=== PATIENT | male | born 1965 | race Caucasian/White ===

== ENCOUNTER 2022-08-19 19:02 | Emergency (ER) | payer MEDICARE, SELFPAY ==
[2022-08-19 19:03] VITALS: BP 217/115; PULSE 98; RESP 18; TEMP 37.2; O2SAT 98
--- NOTE | 2022-08-19 19:14 | W.ED.EXTPRO ---
Documented by User: CESAR Spivey 08/19/22 22:55 HPI - Extremity Problem General: Chief complaint: Extremity Injury, Lower Stated complaint: left knee injury Time Seen by Provider: 08/19/22 19:13 History of Present Illness: Patient is a 56-year-old man that presents to the emergency department with complaints of left lower extremity pain. Patient reports that approximately 2 to 3 weeks ago he had an injury to the left lower extremity. He seemed to improve however yesterday while moving a heavy piece of furniture he felt a pop in the posterior aspect of his knee and had intense pain. Patient reports he developed some swelling in the calf and tenderness in the calf. Patient has no significant medical history. He does not take any routine medications. Associated symptoms: Deny chest pain, fever(s) or rash Review of Systems General: Reports: 10 or more systems reviewed and unremarkable except in HPI and below Const: Denies: fever(s), chills, change in appetite, change in weight, fatigue or malaise Eyes: Denies: change in vision, eye discomfort, eye discharge or eye redness ENMT: Denies: throat pain, enlarged tonsils, odynophagia, hoarseness, ear or mastoid pain, ear discharge, change in hearing, tinnitus, nasal discharge, nasal congestion, post nasal drip or sinus pain Card: Denies: chest pain, palpitations, irregular heart rhythm, edema, dyspnea on exertion, orthopnea or leg pain with exertion Resp: Denies: dyspnea, productive cough, non-productive cough, wheezing, stridor or chest congestion GI: Denies: abdominal pain, nausea, vomiting, dysphagia, diarrhea, constipation, bloating, GI cramping or hematochezia : Denies: flank pain, dysuria, urinary frequency, urinary urgency, urinary hesitancy, oliguria or hematuria Musc: Denies: neck pain, back pain, extremity pain, joint pain, joint swelling, joint redness, joint warmth or muscle weakness Skin/Breast: Denies: rash, pruritus, erythema, photosensitivity or new lesions Neuro: Denies: headache(s), numbness in extremities, weakness in extremities, sensory changes, lack of coordination, difficulty walking, frequent falls, dizziness, confusion, Slurred speech present, difficulty communicating thoughts, seizure-like activity or involuntary movements Endo: Denies: polyuria, polydipsia or tired all the time Flako/Lymph: Denies: easy bruising or easy bleeding Physical Exam Const: COMMON NORMALS: no acute distress, patient oriented x3 and alert GENERAL APPEARANCE: cooperative ORIENTATION/CONSCIOUSNESS: Yes awake, Yes oriented to person, Yes oriented to place and Yes oriented to time HENMT: COMMON NORMALS: normocephalic and atraumatic HEAD & SCALP: normocephalic and atraumatic FACE & SINUS: normal facial exam MOUTH: Normal oral and palatal mucosa present THROAT: posterior oropharynx normal Eye: COMMON NORMALS: Equal, round and reactive pupils present, EOMs intact bilaterally, conjunctivae normal and no scleral icterus GENERAL EYE: appearance normal, both eyes and all related structures ALIGNMENT: Yes alignment normal PERIORBITAL: periorbital findings normal CONJUNCTIVA: Yes conjunctivae normal PUPIL: Yes Equal, round and reactive pupils present Neck/C-Spine: COMMON NORMALS: full ROM GENERAL: Yes normal visual inspection Lymph: LYMPHATIC: no lymphadenopathy noted Chest: COMMONS NORMALS: normal inspection of the chest Breast/axilla inspection: Yes no chest deformity, asymmetry, normal contours, no nodules, masses, tenderness Resp: COMMON NORMALS: normal respiratory effort, No retractions, No use of accessory muscles and clear to auscultation bilaterally EFFORT & INSPECTION: Yes able to speak in complete sentences and Yes symmetric chest movement AUSCULTATION: clear to auscultation bilaterally Cardio: COMMON NORMALS: regular rate, regular rhythm and Peripheral pulses 2+ throughout RATE: regular rate RHYTHM: regular rhythm PERIPHERAL PULSES: Peripheral pulses 2+ throughout GI: COMMON NORMALS: Normal to inspection, nondistended, normoactive bowel sounds present, Soft to palpation, non-tender and No hepatosplenomegaly present INSPECTION: Yes normal to inspection AUSCULTATION: Yes normoactive bowel sounds PALPATION: Yes Soft to palpation and Yes No hepatosplenomegaly present RECTAL EXAM: Yes deferred Extremity: COMMON NORMALS: normal to inspection NARRATIVE EXTREMITY EXAM: Left lower extremity: Skin is clean dry and intact Nontender to palpation on quad, hamstring Tenderness to palpation on calf and posterior knee Patient is able to ambulate without difficulty Pain increases in the posterior knee when standing Negative varus or valgus stress Negative Renato or anterior drawer Patient is able to straight leg raise Patient is able to flex and extend hip and knee Patient is able to dorsiflex and plantarflex foot Sensations intact to light touch at medial, lateral, dorsal, plantar surface of the foot and first webspace DP pulse is palpable and cap refills less than 3 seconds GENERAL: Yes normal exam except as noted Neuro: COMMON NORMALS: patient oriented x3 SENSORIUM/ORIENTATION: Yes alert, Yes oriented to person, Yes oriented to place and Yes oriented to time CRANIAL NERVES: Yes CN normal except as noted Psych: COMMON NORMALS: mental status grossly normal, Normal thought process present, cooperative, activity/motor behavior normal, denies homicidal ideation and denies suicidal ideation THOUGHT PROCESS: Normal thought process present Skin: COMMON NORMALS: no rashes or lesions noted, no wounds and turgor normal GENERAL SKIN EXAM: no rashes or lesions noted and turgor normal Course Vital Signs: Vital signs: Vital Signs Temperature 99.0 F 08/19/22 19:03 Pulse Rate 98 08/19/22 19:03 Respiratory Rate 18 08/19/22 19:03 Blood Pressure 199/105 08/19/22 23:23 Pulse Oximetry 98 08/19/22 19:03 Oxygen Delivery Me thod 08/19/22 19:03 MDM - Extremity (Nontraumatic) Medical Decision Making Patient was evaluated in the emergency department for posterior knee pain. He describes an episode where he had some swelling and pain in the calf. He also reports a story of repetitive injury to the extremity. Differential diagnosis includes strain, sprain, Felix's cyst. More concerning would be DVT. I obtain an ultrasound of the left lower extremity. Ultrasound reveals DVTs (see report). Vascular surgery, at [facility], was contacted at [phone]. They returned the call at [phone]. Recommendation is that he is discharged on [address] Peryr did notify that there has been a change in Eliquis coverage with many insurance providers. Patient has been notified of possible decline by insurance and paying for Eliquis. Going to contact the emergency department to discuss further if this is an issue with his provider. We are going to establish primary care. Management has been consulted. Patient will need emergent placement with the PCP, preferably towards there. If he is unable to establish primary care he can follow-up with Dr. Perry. Prior to patient's departure I am obtaining baseline lab information. Will be used to assess renal function in the case that Eliquis is not covered and we have to change medications. Patient's blood pressure was treated in the emergency department with hydralazine. I will not be discharging him home on blood pressure medications. He will need to establish care to have this followed. I am renewing 2 prescriptions, glimepiride and metformin. Lab Data 08/19/22 22:57 08/19/22 22:57 Radiology Impressions Venous Duplex 08/19/22 19:52 IMPRESSION: Hypoechoic, nearly occlusive to occlusive thrombus in the mid to distal femoral and popliteal veins, as well as 1 of the paired posterior tibial veins. ADDENDUM: 08/19/222124 ADDENDUM: THIS REPORT CONTAINS FINDINGS THAT MAY BE CRITICAL TO PATIENT CARE. As of 9:23 PM DEICER FINISHER on 08/19/2022, DANNY CONTRERAS confirmed receipt of the exam report, is aware of the critical finding and indicated no conference call was necessary to discussed the exam findings. Laboratory Results WBC 9.0 10^3/uL (4.0-10.0) 08/19/22 22:57 RBC 5.09 10^6/uL (4.1-5.3) 08/19/22 22:57 Hgb 15.5 g/dL (11.7-16.6) 08/19/22 22:57 Hct 47.8 % (42.0-52.0) 08/19/22 22:57 MCV 93.9 fl (80-94) 08/19/22 22:57 MCH 30.5 pg (28.0-34.0) 08/19/22 22:57 MCHC 32.4 g/dL (30.0-36.0) 08/19/22 22:57 RDW 12.6 % (12.1-15.1) 08/19/22 22:57 Plt Count 189 10^3/cmm (130-400) 08/19/22 22:57 MPV 10.5 fL (7.4-10.4) H 08/19/22 22:57 Neut % (Auto) 75.6 % 08/19/22 22:57 Lymph % (Auto) 16.3 % 08/19/22 22:57 Villalba % (Auto) 5.2 % 08/19/22 22:57 Eos % (Auto) 1.8 % 08/19/22 22:57 Baso % (Auto) 0.8 % 08/19/22 22:57 Neut # (Auto) 6.79 10^3/uL (1.8-7.7) 08/19/22 22:57 Lymph # (Auto) 1.5 10^3/uL (0.8-4.8) 08/19/22 22:57 Villalba # (Auto) 0.5 10^3/uL (0.2-0.9) 08/19/22 22:57 Eos # (Auto) 0.2 10^3/uL (0.0-0.8) 08/19/22 22:57 Baso # (Auto) 0.1 10^3/uL (0.0-0.1) 08/19/22 22:57 Nucleated RBC % (auto) 0 % 08/19/22 22:57 Nucleated RBCs # 0.0 /100WBC 08/19/22 22:57 Sodium 136 mmol/L (136-145) 08/19/22 22:57 Potassium 4.1 mmol/L (3.5-5.1) 08/19/22 22:57 Chloride 97 mmol/L (98-107) L 08/19/22 22:57 Carbon Dioxide 26 mmol/L (22-29) 08/19/22 22:57 Anion Gap 17.1 (5-19) 08/19/22 22:57 BUN 13 mg/dL (6-20) 08/19/22 22:57 Creatinine 0.7 mg/dL (0.7-1.2) 08/19/22 22:57 GFR Calculation 117.1 mL/min (90-130) 08/19/22 22:57 Glucose 355 mg/dL (65-115) H 08/19/22 22:57 Calculated Osmolality 296 mOsm/kg (285-295) H 08/19/22 22:57 Calcium 9.2 mg/dL (8.5-10.5) 08/19/22 22:57 Total Bilirubin 0.8 mg/dL (0.15-1.2) 08/19/22 22:57 AST 16 U/L (0-40) 08/19/22 22:57 ALT 16 U/L (0-41) 08/19/22 22:57 Alkaline Phosphatase 109 U/L (40-130) 08/19/22 22:57 Total Protein 7.0 g/dL (6.6-8.7) 08/19/22 22:57 Albumin 4.0 g/dL (3.5-5.2) 08/19/22 22:57 Globulin 3.0 g/dL (1.3-4.6) 08/19/22 22:57 Discharge Plan Discharge Patient Disposition: Home Clinical Impression: Dvt femoral (deep venous thrombosis) Condition: Stable Prescriptions: New Eliquis 5 mg tablet 5 mg PO Q12H Qty: 90 0RF Rx Instructions: 10 mg twice daily for 7 days and then 5 mg twice daily. glimepiride 4 mg tablet 4 mg PO DAILY Qty: 30 0RF metformin 1,000 mg tablet 1,000 mg PO BID Qty: 60 0RF No Action metformin 1,000 mg Tablet 1,000 mg PO BID glimepiride 4 mg Tablet 4 mg PO DAILY Discharge Orders: Discharge ED (Routine); Ordered 08/19/22 Ordered By: Danny Contreras Referrals: Beck Perry [Referring] - Discharge Diet: Advance as tolerated Discharge Activity: Resume usual activity Patient Instructions: Apixaban (By mouth) (Eliquis), Deep Vein Thrombosis (ED), Opioid Safety, Pain Management Activity Restrictions/Additional Instructions: You are going to be established with a primary care provider. If needed you can see Dr. Perry, vascular surgeon at [facility] Compression stockings Watch for excessive bleeding while taking these blood thinners Return to the emergency department if you develop any chest pain or shortness of breath. Return for new concerning or worsening symptoms. Coding Level of Care Code ED Front End Developer Designer for Chg Fwd Documented by User: Robert Gasca DO 08/22/22 06:38 HPI - Extremity Problem General: Chief complaint: Extremity Injury, Lower Stated complaint: left knee injury Time Seen by Provider: 08/19/22 19:13 Course Vital Signs: Vital signs: Vital Signs Temperature 99.0 F 08/19/22 19:03 Pulse Rate 98 08/19/22 19:03 Respiratory Rate 18 08/19/22 19:03 Blood Pressure 199/105 08/19/22 23:23 Pulse Oximetry 98 08/19/22 19:03 Oxygen Delivery Me thod 08/19/22 19:03 MDM - Extremity (Nontraumatic) Medical Decision Making Patient was evaluated in the emergency department for posterior knee pain. He describes an episode where he had some swelling and pain in the calf. He also reports a story of repetitive injury to the extremity. Differential diagnosis includes strain, sprain, Felix's cyst. More concerning would be DVT. I obtain an ultrasound of the left lower extremity. Ultrasound reveals DVTs (see report). Vascular surgery, at [facility], was contacted at [phone]. They returned the call at [phone]. Recommendation is that he is discharged on [address] Perry did notify that there has been a change in Eliquis coverage with many insurance providers. Patient has been notified of possible decline by insurance and paying for Eliquis. Going to contact the emergency department to discuss further if this is an issue with his provider. We are going to establish primary care. Management has been consulted. Patient will need emergent placement with the PCP, preferably towards there. If he is unable to establish primary care he can follow-up with Dr. Perry. Prior to patient's departure I am obtaining baseline lab information. Will be used to assess renal function in the case that Eliquis is not covered and we have to change medications. Patient's blood pressure was treated in the emergency department with hydralazine. I will not be discharging him home on blood pressure medications. He will need to establish care to have this followed. I am renewing 2 prescriptions, glimepiride and metformin. Chart reviewed and patient discussed with midlevel. Agree with assessment and plan. Lab Data 08/19/22 22:57 08/19/22 22:57 Radiology Impressions Venous Duplex 08/19/22 19:52 IMPRESSION: Hypoechoic, nearly occlusive to occlusive thrombus in the mid to distal femoral and popliteal veins, as well as 1 of the paired posterior tibial veins. ADDENDUM: 08/19/222124 ADDENDUM: THIS REPORT CONTAINS FINDINGS THAT MAY BE CRITICAL TO PATIENT CARE. As of 9:23 PM DEICER FINISHER on 08/19/2022, DANNY CONTRERAS confirmed receipt of the exam report, is aware of the critical finding and indicated no conference call was necessary to discussed the exam findings. Laboratory Results WBC 9.0 10^3/uL (4.0-10.0) 08/19/22 22:57 RBC 5.09 10^6/uL (4.1-5.3) 08/19/22 22:57 Hgb 15.5 g/dL (11.7-16.6) 08/19/22 22:57 Hct 47.8 % (42.0-52.0) 08/19/22 22:57 MCV 93.9 fl (80-94) 08/19/22 22:57 MCH 30.5 pg (28.0-34.0) 08/19/22 22:57 MCHC 32.4 g/dL (30.0-36.0) 08/19/22 22:57 RDW 12.6 % (12.1-15.1) 08/19/22 22:57 Plt Count 189 10^3/cmm (130-400) 08/19/22 22:57 MPV 10.5 fL (7.4-10.4) H 08/19/22 22:57 Neut % (Auto) 75.6 % 08/19/22 22:57 Lymph % (Auto) 16.3 % 08/19/22 22:57 Villalba % (Auto) 5.2 % 08/19/22 22:57 Eos % (Auto) 1.8 % 08/19/22 22:57 Baso % (Auto) 0.8 % 08/19/22 22:57 Neut # (Auto) 6.79 10^3/uL (1.8-7.7) 08/19/22 22:57 Lymph # (Auto) 1.5 10^3/uL (0.8-4.8) 08/19/22 22:57 Villalba # (Auto) 0.5 10^3/uL (0.2-0.9) 08/19/22 22:57 Eos # (Auto) 0.2 10^3/uL (0.0-0.8) 08/19/22 22:57 Baso # (Auto) 0.1 10^3/uL (0.0-0.1) 08/19/22 22:57 Nucleated RBC % (auto) 0 % 08/19/22 22:57 Nucleated RBCs # 0.0 /100WBC 08/19/22 22:57 Sodium 136 mmol/L (136-145) 08/19/22 22:57 Potassium 4.1 mmol/L (3.5-5.1) 08/19/22 22:57 Chloride 97 mmol/L (98-107) L 08/19/22 22:57 Carbon Dioxide 26 mmol/L (22-29) 08/19/22 22:57 Anion Gap 17.1 (5-19) 08/19/22 22:57 BUN 13 mg/dL (6-20) 08/19/22 22:57 Creatinine 0.7 mg/dL (0.7-1.2) 08/19/22 22:57 GFR Calculation 117.1 mL/min (90-130) 08/19/22 22:57 Glucose 355 mg/dL (65-115) H 08/19/22 22:57 Calculated Osmolality 296 mOsm/kg (285-295) H 08/19/22 22:57 Calcium 9.2 mg/dL (8.5-10.5) 08/19/22 22:57 Total Bilirubin 0.8 mg/dL (0.15-1.2) 08/19/22 22:57 AST 16 U/L (0-40) 08/19/22 22:57 ALT 16 U/L (0-41) 08/19/22 22:57 Alkaline Phosphatase 109 U/L (40-130) 08/19/22 22:57 Total Protein 7.0 g/dL (6.6-8.7) 08/19/22 22:57 Albumin 4.0 g/dL (3.5-5.2) 08/19/22 22:57 Globulin 3.0 g/dL (1.3-4.6) 08/19/22 22:57 Discharge Plan Discharge Patient Disposition: Home Clinical Impression: Dvt femoral (deep venous thrombosis) Condition: Stable Prescriptions: New Eliquis 5 mg tablet 5 mg PO Q12H Qty: 90 0RF Rx Instructions: 10 mg twice daily for 7 days and then 5 mg twice daily. glimepiride 4 mg tablet 4 mg PO DAILY Qty: 30 0RF metformin 1,000 mg tablet 1,000 mg PO BID Qty: 60 0RF No Action metformin 1,000 mg Tablet 1,000 mg PO BID glimepiride 4 mg Tablet 4 mg PO DAILY Discharge Orders: Discharge ED (Routine); Ordered 08/19/22 Ordered By: Danny Contreras Referrals: Beck Perry [Referring] - Discharge Diet: Advance as tolerated Discharge Activity: Resume usual activity Patient Instructions: Apixaban (By mouth) (Eliquis), Deep Vein Thrombosis (ED), Opioid Safety, Pain Management Activity Restrictions/Additional Instructions: You are going to be established with a primary care provider. If needed you can see Dr. Perry, vascular surgeon at [facility] Compression stockings Watch for excessive bleeding while taking these blood thinners Return to the emergency department if you develop any chest pain or shortness of breath. Return for new concerning or worsening symptoms. Coding Level of Care Code ED Front End Developer Designer for Karyn Gregory
--- NOTE | 2022-08-19 19:52 | USR_ITS ---
PROCEDURE INFORMATION: Exam: US Duplex Left Lower Extremity Veins, Limited Exam date and time: 08/19/2022 8:35 PM Age: 56 years old Clinical indication: Pain; Leg, lower; Left; Additional info: Pain behind the left knee with pain/swelling in calf TECHNIQUE: Imaging protocol: Real-time duplex ultrasound of the Left extremity with 2-D ivey scale, color Doppler flow and spectral waveform analysis including responses to compression and other maneuvers (when performed) with image documentation. Limited exam focused on the left lower extremity veins. COMPARISON: No relevant prior studies available. FINDINGS: Left deep veins: Hypoechoic, nearly occlusive to occlusive thrombus in the mid to distal femoral and popliteal veins, as well as 1 of the paired posterior tibial veins. The common femoral, proximal femoral, peroneal and the other of the 2 paired posterior tibial veins are patent without thrombus. Left superficial veins: Unremarkable. Saphenofemoral junction is patent without thrombus. Soft tissues: Mild subcutaneous edema. US/CV venous duplex [facility] [id number] IMPRESSION: Hypoechoic, nearly occlusive to occlusive thrombus in the mid to distal femoral and popliteal veins, as well as 1 of the paired posterior tibial veins.
--- NOTE | 2022-08-19 21:44 | PC.NURSE ---
pt rounding pt rounded on at this time. hooked up to bp cuff.
[2022-08-19] MEDS: apixaban 5 mg Tablet 10 MG PO (22:19)
[2022-08-19] MEDS: ketorolac 10 mg Tablet PO (22:19)
[2022-08-19] MEDS: hyDRALAzine 25 mg Tablet PO (22:54)
[2022-08-19 23:01] LABS: Basophils # 0.1 10^3/uL (0.0-0.1); Basophils % 0.8 %; Eosinophils # 0.2 10^3/uL (0.0-0.8); Eosinophils % 1.8 %; Hematocrit 47.8 % (42.0-52.0); Hemoglobin 15.5 g/dL (11.7-16.6); Lymphocytes # 1.5 10^3/uL (0.8-4.8); Lymphocytes % 16.3 %; Mean Corpuscular HGB Conc 32.4 g/dL (30.0-36.0); Mean Corpuscular Hemoglobin 30.5 pg (28.0-34.0); Mean Corpuscular Volume 93.9 fl (80-94); Mean Platelet Volume 10.5 fL (7.4-10.4); Monocytes # 0.5 10^3/uL (0.2-0.9); Monocytes % 5.2 %; Neutrophils # 6.79 10^3/uL (1.8-7.7); Neutrophils % 75.6 %; Nucleated Red Blood Cells % 0 %; Platelet Count 189 10^3/cmm (130-400); Red Blood Count 5.09 10^6/uL (4.1-5.3); Red Cell Distribution Width 12.6 % (12.1-15.1)
[2022-08-19 23:23] VITALS: BP 199/105
[2022-08-19 23:23] LABS: Alanine Aminotransferase 16 U/L (0-41); Alkaline Phosphatase 109 U/L (40-130); Aspartate Amino Transferase 16 U/L (0-40); Blood Urea Nitrogen 13 mg/dL (6-20); Calcium 9.2 mg/dL (8.5-10.5); Carbon Dioxide 26 mmol/L (22-29); Chloride 97 mmol/L (98-107); Glomerular Filtration Rate 117.1 mL/min (90-130); Glucose 355 mg/dL (65-115); Osmolality Calculated 296 mOsm/kg (285-295); Sodium 136 mmol/L (136-145); Total Bilirubin 0.8 mg/dL (0.15-1.2)
[2022-08-19 23:30] LABS: Anion Gap 17.1 (5-19)
[2022-08-19 23:31] LABS: Potassium 4.1 mmol/L (3.5-5.1)
--- NOTE | 2022-08-21 13:18 | DCPLANNER ---
Addendum entered by Chayito Salguero 09/20/22 07:30: Patient had a follow up appointment to establish care at [facility] with Dr. Brian - patient did attend appointment Original Note: plumbing manager had message to speak with patient about getting established with a primary care physician. plumbing manager spoke with patient he stated that he would like to get established with his primary care physician. plumbing manager called [facility], gave clinic patients information. A follow up appointment was scheduled with patient for Sunday August 28, 2022 at 3:[address] Brian. plumbing manager called patient and gave patient the appointment information. plumbing manager also had message to see if patient needed help in getting his prescriptions. Patient said that he got the prescription filled and that he could afford the medication so he does not need help in getting prescription filled.
== END 2022-08-19 23:24 | disposition home or self-care (01) ==
PROVIDERS: Emergency Provider Nurse Practitioner
DX: I82.412 Acute embolism and thrombosis of left femoral vein (principal); I82.432 Acute embolism and thrombosis of left popliteal vein
CPT/HCPCS: 80053; 85025; 93971; 99284

== ENCOUNTER → 2022-09-27 11:31 | Outpatient (BNVA) | payer MEDICARE, SELFPAY | PROVIDERS: PCP Family Medicine; Visit Provider Family Medicine | DX: I10 Essential (primary) hypertension (principal); E11.9 Type 2 diabetes mellitus without complications; I82.409 Acute embolism and thrombosis of unspecified deep veins of unspecified lower extremity; Z12.5 Encounter for screening for malignant neoplasm of prostate | CPT/HCPCS: 80053; 80061; 83036; 84443; G0103 ==

== ENCOUNTER → 2022-12-27 11:19 | Outpatient (BNVA) | payer MEDICARE, SELFPAY | PROVIDERS: PCP Family Medicine; Visit Provider Family Medicine | DX: E11.9 Type 2 diabetes mellitus without complications (principal); I10 Essential (primary) hypertension; I82.409 Acute embolism and thrombosis of unspecified deep veins of unspecified lower extremity | CPT/HCPCS: 80053; 80061; 83036; 84443; 85025 ==

== ENCOUNTER → 2025-01-23 10:43 | Outpatient (BNVA) | payer MEDICARE, MEDICAID, SELFPAY | PROVIDERS: PCP Nurse Practitioner Family; Visit Provider Nurse Practitioner Family | DX: E11.9 Type 2 diabetes mellitus without complications (principal); I16.0 Hypertensive urgency; Z12.5 Encounter for screening for malignant neoplasm of prostate | CPT/HCPCS: 80053; 80061; 82607; 83036; 83735; 84439; 84443; 85025; G0103 ==

== ENCOUNTER 2025-01-25 21:04 | Emergency (ER) | payer OTHER, MEDICAID, SELFPAY ==
[2025-01-25] VITALS (7 sets, daily range): BP systolic 139–223; BP diastolic 80–138; PULSE 61–88; RESP 16; TEMP 36.7; O2SAT 93–99; BMI 31.4
--- OUTSIDE RECORDS SUMMARY | 2025-01-25 21:18 | XMS_ITS | Patient Health Record ---
Author Organization [facility] Address [address] [place] [address] Support Name Relationship Address Phone VALERIO BOWENS Emergency Contact [id number] [id number] ARINA BOWENS Guarantor Unknown [phone] Reason For Referral No Information Medications Medication SIG (Take, Route, Frequency, Duration) Notes Start Date End Date Status aspirin, buffered 81 mg *please review for potential update for e-prescription and drug interaction check* 1 tablet by Oral route 1 time per day 02/24/2015 Active metFORMIN HCl 500 MG Oral take 1 tablet (500 mg) by oral route 2 times per day with morning and evening meals 02/24/2015 Active Lisinopril 10 MG Oral take 1 tablet ( 10 mg) by oral route once daily 02/24/2015 Active Problems Problem Type SNOMED Code ICD Code Onset Dates Problem Status W/U Status Risk Notes Problem Essential hypertension (81646017) Unspecified essential hypertension (401.9) 5 Active confirmed Problem Acute upper respiratory infection (74305673) Acute upper respiratory infections of unspecified site (465.9) 5 Active confirmed Problem Sciatica (58189078) Sciatica (724.3) 3 Active confirmed Problem Abnormal glucose level (697000915) Other abnormal glucose (790.29) 4 Active confirmed Problem Elevated blood pressure reading without diagnosis of hypertension (228613778) Elevated blood pressure reading without diagnosis of hypertension (796.2) 5 Active confirmed Problem Type II diabetes mellitus without complication (049470754) Type 2 diabetes mellitus without complications (E11.9) 5 Active confirmed Problem Essential hypertension (36502169) Essential (primary) hypertension (I10) 5 Active confirmed Problem Acute sinusitis (57512478) Acute sinusitis, unspecified (J01.90) 5 Active confirmed Problem Tenderness of epigastrium (815981300) ABDOMINAL TENDERNESS EPIGASTRIC (789.66) 5 Active confirmed Problem Obesity (disorder) (682255820) OBESITY UNSPECIFIED (278.00) 5 Active confirmed Problem Spondylosis without myelopathy (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 [address] [place] [address] [id number] ARINA BOWENS Self - patient is the insured Medicare U[employer] [address] [place] [address] [id number] ARINA BOWENS Self - patient is the insured
--- NOTE | 2025-01-25 21:20 | XRR_ITS ---
PROCEDURE INFORMATION: Exam: XR Left Foot Exam date and time: 01/25/2025 9:35 PM Age: 59 years old Clinical indication: Pain; Swelling, leg or foot; Toes; Patient dropped a jar on left great toe two days ago and now has swelling and redness with drainage around nail bed. History of diabetes. ; Additional info: Diabetic wound to toe TECHNIQUE: Imaging protocol: Radiologic exam of the left foot. Views: 3 or more views. COMPARISON: No relevant prior studies available. FINDINGS: Bones/joints: The great toe is intact. Degenerative changes are minimal. Curvilinear calcification at the base of the 5th metatarsal should be chronic. Soft tissues: No gas in the soft tissues or obvious swelling. XR/XR foot LT min 3V* [id number] IMPRESSION: No acute findings
--- NOTE | 2025-01-25 21:46 | ECG_ITS ---
[facility] Test Date: 2025-01-25 Pat Name: Darrell Blunt Department: Room: Gender: Male Manager Field Service: : 1965 Requested By: Shalonda Beasley Order Number: [id number] Quan MD: Aba Puente M.D. Measurements Intervals [place] Rate: 80 P: 64 TN: 166 QRS: 26 QRSD: 88 T: 76 QT: 365 QTc: 421 Interpretive Statements SINUS RHYTHM LOW QRS VOLTAGE IN PRECORDIAL LEADS [QRS DEFLECTION < 1.0 mV IN CHEST LEADS] No previous ECG available for comparison Electronically Signed On 01-26-2025 17:02:40 CDT by Aba Puente M.D. [email or web address]
--- NOTE | 2025-01-25 21:53 | ED_ITS ---
HPI - Wound/Laceration 2 General: Chief Complaint: Wound/Laceration Stated Complaint: Left Big Toe Pain Time Seen by Provider: 01/25/25 21:16 History of Present Illness: Patient is a 59-year-old gentleman with DM, HTN, history of DVT on Eliquis and compliant, presented to the emergency room initially with hurting his left big toe 2 weeks ago, that had some localized swelling, without issues, then patient dropped a bottle of catch up on his left big toe on Sunday, 2 days ago, which caused extreme pain, redness, drainage. Self-care included antibiotic ointment topically. Patient has partially missing toenail as well on this left big toe. Associated symptoms: Denies chills, fever(s) or vomiting Related Data Previous Rx's ?Medication ?Instructions ?Recorded blood-glucose meter #1 ea 12/05/23 amlodipine 10 mg tablet 10 mg PO DAILY #90 tabs 01/06 03/02 apixaban 5 mg tablet (Eliquis) See Rx Instructions .Ro quinault 01/23/25 .COMPLEX #180 tabs escitalopram oxalate 10 mg tablet 10 mg PO DAILY #90 t abs 01/23/25 (Lexapro) lisinopril 40 mg tablet 40 mg PO DAILY #90 tabs 01/06 03/02 metformin 1,000 mg tablet See Rx Instructions .Route 0 01/23/25 .COMPLEX #180 tabs amoxicillin 875 mg-potassium 1 tab PO Q12H 10 days #20 tabs 01/25/25 clavulanate 125 mg tablet Allergies Allergy/AdvReac Type Severity Reaction Status Date / Time Sulfa (Sulfonamide Allergy Unknown Verified 01/23/25 08:29 Antibiotics) Review of Systems 2 Const: Denies: fever(s), chills or fatigue Eyes: Denies: change in vision, eye discharge or eye redness ENMT: Denies: throat pain, ear or mastoid pain, nasal discharge, post nasal drip or sinus pain Card: Denies: chest pain, palpitations or swelling of feet/ankles Resp: Denies: dyspnea, non-productive cough or wheezing GI: Denies: abdominal pain, vomiting or diarrhea : Denies: flank pain or dysuria Musc: Reports: extremity pain; Denies: neck pain or back pain Skin/Breast: Denies: rash, pruritus or erythema Neuro: Denies: headache(s), numbness in extremities or weakness in extremities Psych: Denies: suicidal ideation or homicidal ideation PFSH ED 2 PFSH: Surgical History History of tonsillectomy History of cholecystectomy Social History Smoking and tobacco/nicotine status: never used tobacco/nicotine Second hand smoke exposure: No Alcohol intake: never Substance/Drug Use: never Lives independently: Yes Household members: spouse Marital status: service: No Current occupational status: disabled Do you think of yourself as: Straight/Heterosexual Current gender identity: Male Special [place] needs: No Agree to transfusion: Yes Physical Exam 2 Const: COMMON NORMALS: no acute distress and patient oriented x3 GENERAL APPEARANCE: cooperative and comfortable HENMT: COMMON NORMALS: normocephalic, atraumatic, hearing grossly normal bilaterally, EAC's normal, TM's normal bilaterally and Normal external nose present HEAD & SCALP: normal to inspection, normocephalic and atraumatic F TODD & SINUS: normal facial exam NOSE: Normal external nose present and Normal nares present EXTERNAL AUDITORY CANAL: EAC's normal TYMPANIC MEMBRANE: T M's normal bilaterally THROAT: posterior oropharynx normal Eye: COMMON NORMALS: Equal, round and reactive pupils present GENERAL EYE: appearance normal, both eyes and all related structures PUPIL: Yes Equal, round and reactive pupils present OTHER: mild blood shot appearance to eyes xanthelasma noted Neck/C-Spine: COMMON NORMALS: no lymphadenopathy, supple and No carotid bruits Chest: CHEST: Yes Symmetrical chest wall rise Resp: COMMON NORMALS: normal respiratory effort and clear to auscultation bilaterally EFFORT & INSPECTION: Yes able to speak in complete sentences and Yes symmetric chest movement AUSCULTATION: clear to auscultation bilaterally Cardio: COMMON NORMALS: regular rate and regular rhythm RATE: regular rate RHYTHM: regular rhythm GI: COMMON NORMALS: Normal to inspection, nondistended, normoactive bowel sounds present and Soft to palpation INSPECTION: Yes normal to inspection AUSCULTATION: Yes normoactive bowel sounds PALPATION: Yes Soft to palpation Extremity: COMMON NORMALS: no calf tenderness and no pedal edema LEFT LOWER EXTREMITY: Yes foot & digits Left foot and digits: Yes inspection (Redness, edema around left big toe. Half of the nail is avulsed.), Yes ROM and Yes neurovascular exam (intact) Neuro: COMMON NORMALS: patient oriented x3, moves all extremities and gait normal Psych: COMMON NORMALS: mental status grossly normal, Normal thought process present, cooperative, normal affect, speech normal and activity/motor behavior normal SPEECH: Yes normal speech THOUGHT PROCESS: Normal thought process present Skin: COMMON NORMALS: no rashes or lesions noted GENERAL SKIN EXAM: no rashes or lesions noted Course 2 Vital Signs: Vital signs: Vital Signs Temperature 98.1 F 01/25/25 21:06 Pulse Rate 67 01/25/25 23:27 Respiratory Rate 16 01/25/25 23:27 Blood Pressure 139/80 01/25/25 23:27 Pulse Oximetry 96 01/25/25 23:27 Oxygen Delivery Me thod Room Air 01/25/25 21:06 MDM - Wound/Laceration Medical Decision Making Patient is a 59-year-old gentleman that initially had a toe injury 2 years ago by back pain, then on Sunday, 2 days ago, dropped catch up on his toe. He has a partial nail avulsion, redness, edema. Given his diabetes, we will send him to wound care to complete healing. There was no fracture seen on x-ray. Will treat for full course of antibiotics given his diabetes and his toe injury. Lab Data 01/25/25 21:42 01/25/25 21:42 Radiology Impressions Foot X-Ray 01/25/25 21:20 IMPRESSION: No acute findings Laboratory Results WBC 11.25 10^3/uL (3.29-11.43) 01/25/25 21:42 RBC 5.06 10^6/uL (3.85-5.65) 01/25/25 21:42 Hgb 15.30 g/dL (11.27-16.99) 01/25/25 21:42 Hct 44.7 % (37-53) 01/25/25 21:42 MCV 88.3 fl (82-101) 01/25/25 21:42 MCH 30.2 pg (27-33) 01/25/25 21:42 MCHC 34.2 g/dL (30-55) 01/25/25 21:42 RDW 12.9 % (12.1-15.1) 01/25/25 21:42 Plt Count 255 10^3/cmm (157-399) 01/25/25 21:42 MPV 9.4 fL (7.4-10.4) 01/25/25 21:42 Neut % (Auto) 81.1 % 01/25/25 21:42 Lymph % (Auto) 11.4 % 01/25/25 21:42 [place] % (Auto) 5.7 % 01/25/25 21:42 Eos % (Auto) 1.0 % 01/25/25 21:42 Baso % (Auto) 0.4 % 01/25/25 21:42 Neut # (Auto) 9.13 10^3/uL (1.8-7.7) H 01/25/25 21:42 Lymph # (Auto) 1.3 10^3/uL (0.8-4.8) 01/25/25 21:42 [place] # (Auto) 0.6 10^3/uL (0.2-0.9) 01/25/25 21:42 Eos # (Auto) 0.1 10^3/uL (0.0-0.8) 01/25/25 21:42 Baso # (Auto) 0.1 10^3/uL (0.0-0.1) 01/25/25 21:42 Nucleated RBC % (auto) 0 % 01/25/25 21:42 Nucleated RBCs # 0.0 /100WBC 01/25/25 21:42 Sodium 135 mmol/L (136-145) L 01/25/25 21:42 Potassium 3.7 mmol/L (3.5-5.1) 01/25/25 21:42 Chloride 97 mmol/L (98-107) L 01/25/25 21:42 Carbon Dioxide 23 mmol/L (22-29) 01/25/25 21:42 Anion Gap 18.7 (5-19) 01/25/25 21:42 BUN 19 mg/dL (6-20) 01/25/25 21:42 Creatinine 1.0 mg/dL (0.7-1.2) 01/25/25 21:42 GFR Calculation 76.7 mL/min (90-130) L 01/25/25 21:42 Glucose 175 mg/dL (65-115) H 01/25/25 21:42 Calculated Osmolality 287 mOsm/kg (285-295) 01/25/25 21:42 Lactic Acid 2.2 mmol/L (0.5-2.2) 01/25/25 21:42 Calcium 9.2 mg/dL (8.5-10.5) 01/25/25 21:42 Total Bilirubin 0.7 mg/dL (0.15-1.2) 01/25/25 21:42 AST 20 U/L (0-40) 01/25/25 21:42 ALT 28 U/L (0-41) 01/25/25 21:42 Alkaline Phosphatase 96 U/L (40-130) 01/25/25 21:42 C-Reactive Protein 3.0 mg/L (0.0-4.9) 01/25/25 21:42 Total Protein 8.2 g/dL (6.6-8.7) 01/25/25 21:42 Albumin 4.3 g/dL (3.5-5.2) 01/25/25 21:42 Globulin 3.9 g/dL (1.3-4.6) 01/25/25 21:42 All radiology interpretation(s) finalized by discharge Discharge Plan Discharge Patient Disposition: Home Clinical Impression: Injury of left great toe Qualifiers: Encounter type: initial encounter Qualified Code(s): S99.922A - Unspecified injury of left foot, initial encounter Diabetes mellitus Qualifiers: Diabetes mellitus type: type 2 Diabetes mellitus longterm insulin use: without computer terminal operator use Diabetes mellitus complication status: without complication Q ualified Code(s): E11.9 - Type 2 diabetes mellitus without complications Condition: Stable Prescriptions: New amoxicillin-pot clavulanate 875-125 mg tablet 1 tab PO Q12H 10 Days Qty: 20 0RF No Action clonidine HCl 0.1 mg tablet 0.1 mg PO ONCE Qty: 1 0RF metformin 1,000 mg tablet See Rx Instructions .ROUTE .COMPLEX Qty: 180 1RF Dose Instruction: Take 1 tablet by mouth twice daily Rx Instructions: Take 1 tablet by mouth twice daily lisinopril 40 mg tablet 40 mg PO DAILY Qty: 90 1RF escitalopram oxalate [Lexapro] 10 mg tablet 10 mg PO DAILY Qty: 90 1RF Eliquis 5 mg tablet See Rx Instructions .ROUTE .COMPLEX Qty: 180 0RF Dose Instruction: TAKE 1 TABLET BY MOUTH EVERY 12 HOURS Rx Instructions: TAKE 1 TABLET BY MOUTH EVERY 12 HOURS amlodipine 10 mg tablet 10 mg PO DAILY Qty: 90 0RF (DME) blood-glucose meter Kit See Rx Instructions .Route Qty: 1 0RF Rx Instructions: As directed E11.9 Discharge Orders: Discharge ED (Routine); Ordered 01/25/25 Ordered By: Shalonda Beasley Referrals: Breana Sparks FNP [Primary Care Provider, Family Practice] Discharge Diet: Usual diet and Diabetic Discharge Activity: Limit activity as instructed Patient Instructions: Nail Avulsion (ED), Puncture Wound in the Foot (ED), Patient Portal & Frank Instructions Activity Restrictions/Additional Instructions: Apply Vaseline to outer portion of toe. Take antibiotics as directed. Take a probiotic or active culture yogurt to avoid infectious diarrhea Case management will help assist in wound care follow-up. Given your diabetes, is important you see wound care for healing measures Tylenol or ibuprofen for pain. You may ice, elevate to assist with pain as well Return to ED for worsening pain, edema, swelling, redness, fever greater than 100.4 ?F. Print Language: [place] Coding Level of Care Code ED Databases Computer Consultant for Karyn Gregory
[2025-01-25 21:59] LABS: Hematocrit 44.7 % (37-53); Hemoglobin 15.30 g/dL (11.27-16.99); Mean Corpuscular HGB Conc 34.2 g/dL (30-55); Mean Corpuscular Hemoglobin 30.2 pg (27-33); Mean Corpuscular Volume 88.3 fl (82-101); Nucleated Red Blood Cells % 0 %; Platelet Count 255 10^3/cmm (157-399); Red Blood Count 5.06 10^6/uL (3.85-5.65); White Blood Count 11.25 10^3/uL (3.29-11.43)
[2025-01-25 22:14] LABS: Lactic Sepsis W/Reflex 2.2 mmol/L (0.5-2.2)
[2025-01-25 22:15] LABS: Alanine Aminotransferase 28 U/L (0-41); Albumin Level 4.3 g/dL (3.5-5.2); Alkaline Phosphatase 96 U/L (40-130); Anion Gap 18.7 (5-19); Aspartate Amino Transferase 20 U/L (0-40); Blood Urea Nitrogen 19 mg/dL (6-20); Calcium 9.2 mg/dL (8.5-10.5); Carbon Dioxide 23 mmol/L (22-29); Chloride 97 mmol/L (98-107); Creatinine Clr Calc Pharmacy 106.7959; Globulin 3.9 g/dL (1.3-4.6); Glucose 175 mg/dL (65-115); Osmolality Calculated 287 mOsm/kg (285-295); Potassium 3.7 mmol/L (3.5-5.1); Sodium 135 mmol/L (136-145); Total Protein 8.2 g/dL (6.6-8.7)
[2025-01-25 22:18] LABS: Reflex Lactate Order REFLEX LACTIC ORDERD
--- NOTE | 2025-01-26 08:36 | DCPLANNER ---
Message sent to Wound care for follow up- Patient is a 59-year-old gentleman that initially had a toe injury 2 years ago by back pain, then on Sunday, 2 days ago, dropped catch up on his toe. He has a partial nail avulsion, redness, edema. Given his diabetes, we will send him to wound care to complete healing. There was no fracture seen on x-ray. Will treat for full course of antibiotics given his diabetes and his toe injury.
== END 2025-01-25 23:36 | disposition home or self-care (01) ==
PROVIDERS: Emergency Provider Physician Assistant; PCP Nurse Practitioner Family
DX: S99.922A Unspecified injury of left foot, initial encounter (principal); W22.8XXA Striking against or struck by other objects, initial encounter; E11.9 Type 2 diabetes mellitus without complications
CPT/HCPCS: 36415; 73630; 80053; 83605; 85025; 86140; 93005; 99285; J9999

== ENCOUNTER → 2025-02-05 08:03 | Outpatient (BNVA) | payer OTHER, MEDICAID, SELFPAY | PROVIDERS: PCP Nurse Practitioner Family; Visit Provider Thoracic Surgery (Cardiothoracic Vascular Surgery) | DX: E11.52 Type 2 diabetes mellitus with diabetic peripheral angiopathy with gangrene (principal); E11.621 Type 2 diabetes mellitus with foot ulcer; L97.522 Non-pressure chronic ulcer of other part of left foot with fat layer exposed; L60.0 Ingrowing nail | CPT/HCPCS: 11042; 11730; 99203 ==

== ENCOUNTER → 2025-02-17 10:50 | Outpatient (BNVA) | payer OTHER, MEDICAID, SELFPAY | PROVIDERS: PCP Nurse Practitioner Family; Visit Provider Thoracic Surgery (Cardiothoracic Vascular Surgery) | DX: E11.52 Type 2 diabetes mellitus with diabetic peripheral angiopathy with gangrene (principal); E11.621 Type 2 diabetes mellitus with foot ulcer; L97.521 Non-pressure chronic ulcer of other part of left foot limited to breakdown of skin; L60.0 Ingrowing nail | CPT/HCPCS: 11750; J9999 ==